=== PATIENT | female | born 1960 | race Caucasian/White ===

== ENCOUNTER → 2016-04-12 | Outpatient (CLI) | payer OTHER ==
--- NOTE | 2016-04-14 07:57 | MM ---
Reason for exam: screening (asymptomatic). Last mammogram was performed 7 months ago. History: Patient is postmenopausal and had first child after 30. Benign MG stereo VAD BX RT of the right breast, March 23, 2015. Benign right breast needle localzation of both breasts, March 06, 2012. Benign right mammotome panel of the right breast, February 27, 2012. Physical Findings: A clinical breast exam by your physician is recommended on an annual basis and results should be correlated with mammographic findings. MG Screening Mammo w CAD Bilateral CC and MLO view(s) were taken. Prior study comparison: September 21, 2015, right breast MG diagnostic mammo RT w CAD. March 15, 2015, right breast MG work up mamm w CAD RT. February 24, 2015, bilateral MG screening mammo w CAD. September 10, 2013, bilateral MG screening mammo w CAD. There are scattered fibroglandular densities. No significant changes when compared with prior studies. ASSESSMENT: Negative, BI-RAD 1 RECOMMENDATION: Routine screening mammogram of both breasts in 1 year.
== END | disposition home or self-care (01) ==
LOC: RADMAMWWP 06:55
PROVIDERS: ATTEND Family Medicine
DX: Z12.31 Encounter for screening mammogram for malignant neoplasm of breast (principal)

== ENCOUNTER → 2017-08-10 | Outpatient (CLI) | payer OTHER ==
--- NOTE | 2017-08-13 11:03 | MM ---
Reason for exam: screening (asymptomatic). Last mammogram was performed 1 year and 4 months ago. History: Patient is postmenopausal and had first child after 30. Benign MG stereo VAD BX RT of the right breast, March 23, 2015. Benign right breast needle localzation of both breasts, March 06, 2012. Benign right mammotome panel of the right breast, February 27, 2012. Physical Findings: A clinical breast exam by your physician is recommended on an annual basis and results should be correlated with mammographic findings. MG Screening Mammo w CAD Bilateral CC and MLO view(s) were taken. Prior study comparison: April 12, 2016, bilateral MG screening mammo w CAD. September 21, 2015, right breast MG diagnostic mammo RT w CAD. There are scattered fibroglandular densities. Finding: There are typically benign round calcifications in both breasts. Previous mammotome biopsy in the right breast. There is no discrete abnormality. ASSESSMENT: Benign, BI-RAD 2 RECOMMENDATION: Routine screening mammogram of both breasts in 1 year.
== END | disposition home or self-care (01) ==
LOC: RADMAMWWP 07:11
PROVIDERS: ATTEND Family Medicine
DX: Z12.31 Encounter for screening mammogram for malignant neoplasm of breast (principal)
CPT/HCPCS: 77067

== ENCOUNTER → 2018-09-17 | Outpatient (CLI) | payer OTHER ==
--- NOTE | 2018-09-17 11:01 | MM ---
Reason for exam: screening (asymptomatic). Last mammogram was performed 1 year and 1 month ago. History: Patient is postmenopausal and had first child after 30. Benign MG stereo VAD BX RT of the right breast, March 23, 2015. Benign right breast needle localzation of both breasts, March 06, 2012. Benign right mammotome panel of the right breast, February 27, 2012. Physical Findings: A clinical breast exam by your physician is recommended on an annual basis and results should be correlated with mammographic findings. MG Screening Mammo w CAD Bilateral CC and MLO view(s) were taken. Prior study comparison: August 10, 2017, bilateral MG screening mammo w CAD. April 12, 2016, bilateral MG screening mammo w CAD. The breast tissue is almost entirely fat. No significant changes when compared with prior studies. ASSESSMENT: Benign, BI-RAD 2 RECOMMENDATION: Routine screening mammogram of both breasts in 1 year.
== END | disposition home or self-care (01) ==
LOC: RADMAMWWP 07:14
PROVIDERS: ATTEND Family Medicine
DX: Z12.31 Encounter for screening mammogram for malignant neoplasm of breast (principal)
CPT/HCPCS: 77067

== ENCOUNTER 2019-10-12 15:25 | Emergency (ER) | payer OTHER ==
[2019-10-12 15:34] VITALS: TEMP 98.6
--- NOTE | 2019-10-12 15:53 | ED ---
Fall HPI - General Chief Complaint: Fall Stated Complaint: Fall, right arm pain Time Seen by Provider: 10/12/19 15:35 Source: patient, RN notes reviewed, old records reviewed Mode of arrival: ambulatory - History of Present Illness Initial Comments: Bianca is a 59-year-old female who presents emergency department today after a fall from a ladder. Patient reports that she was a few feet up a ladder painting and the ladder slid down the wall, causing the Patient to hit her right elbow and humerus on a board. Patient states that she has pain with range of motion at the elbow and upper arm. Patient denies any shoulder or clavicle pain. She reports normal sensation in the hand. She is right-handed. She denies any previous arm fractures. - Related Data Allergies Allergy/AdvReac Type Severity Reaction Status Date / Time No Known Allergies Allergy Verified 10/12/19 15:34 Review of Systems ROS Statement: Those systems with pertinent positive or pertinent negative responses have been documented in the HPI. ROS Other: All systems not noted in ROS Statement are negative. Past Medical History Past Medical History: Diabetes Mellitus, Hypertension History of Any Multi-Drug Resistant Organisms: None Reported Past Surgical History: Cholecystectomy, Tonsillectomy Past Psychological History: No Psychological Hx Reported Smoking Status: Never smoker Past Alcohol Use History: None Reported Past Drug Use History: None Reported General Exam - General Exam Comments Initial Comments: 59 -year-old female. No distress. Limitations: no limitations General appearance: alert, in no apparent distress Head exam: Present: atraumatic, normocephalic, normal inspection Eye exam: Present: normal appearance, PERRL, EOMI. Absent: scleral icterus, conjunctival injection, periorbital swelling ENT exam: Present: normal exam Neck exam: Present: normal inspection. Absent: tenderness, meningismus, lymphadenopathy Respiratory exam: Present: normal lung sounds bilaterally Cardiovascular Exam: Present: regular rate, normal rhythm, normal heart sounds. Absent: systolic murmur, diastolic murmur, rubs, gallop, clicks GI/Abdominal exam: Present: soft, normal bowel sounds. Absent: distended, tenderness, guarding, rebound, rigid Extremities exam: Present: normal inspection, full ROM, normal capillary refill. Absent: tenderness, pedal edema, joint swelling, calf tenderness Right Shoulder Exam: Present: normal inspection, full ROM Upper Arm exam: Present: normal inspection, full ROM, tenderness (over distal humerus) Elbow exam: Present: normal inspection, full ROM Forearm Wrist exam: Present: normal inspection, full ROM Hand Wrist exam: Present: normal inspection, full ROM Back exam: Present: normal inspection Neurological exam: Present: alert, oriented X3, CN II-XII intact Psychiatric exam: Present: normal affect, normal mood Skin exam: Present: warm, dry, intact, normal color. Absent: rash Course Vital Signs 10/12/19 15:32 Temperature 98.6 F Pulse Rate 63 Respiratory 20 Rate Blood Pressure 144/72 O2 Sat by Pulse 98 Oximetry Medical Decision Making - Medical Decision Making 59-year-old female presents emergency department today for evaluation for concern for right arm pain after falling off a ladder hitting the upper arm on a wooden board. At this time Patient elbow and humerus x-rays show no fractures. His evidence of olecranon spurring. Patient does have contusions warm to touch over the arm. Discussed Eusebio wrap and sling at this time but there is no evidence of fracture. Patient advised to have follow-up with her primary care doctor or orthopedic if symptoms continue persist or worsen. We'll discharge Patient had temperature medication. - Radiology Data Radiology results: report reviewed Elbow x-ray shows olecranon process peripheral mentation. No fracture. Negative right humerus exam. Disposition Clinical Impression: Arm contusion Disposition: HOME SELF-CARE Condition: Good Instructions (If sedation given, give patient instructions): Contusion in Adults (ED), Arm Pain (ED) Additional Instructions: Please use medication as discussed. Patient is to rest ice and elevate the arm. Please follow up with family doctor if symptoms have not improved over the next two days. Please return to the emergency room if your symptoms increase or worsen or for any other concerns. Is patient prescribed a controlled substance at d/c from ED?: No Referrals: Milad Montano DO [Primary Care Provider] - 1-2 days Time of Disposition: 16:35
--- NOTE | 2019-10-12 16:14 | XR ---
EXAMINATION TYPE: XR elbow complete RT DATE OF EXAM: 10/12/2019 COMPARISON: None HISTORY: Fell off a ladder. Elbow pain. TECHNIQUE: 3 views FINDINGS: I see no fracture nor dislocation. Joint spaces are normal. There is spurring on the olecra non process of the ulna. There is no sign of elbow joint effusion. IMPRESSION: Olecranon process spur formation. No fracture seen.
--- NOTE | 2019-10-12 16:15 | XR ---
EXAMINATION TYPE: XR humerus RT DATE OF EXAM: 10/12/2019 COMPARISON: NONE HISTORY: Pain. Fall off a ladder. TECHNIQUE: 3 views FINDINGS: The elbow joint and shoulder joint appear intact. I see no fracture nor dislocation. AC erickson nt appears intact. IMPRESSION: Negative right humerus exam.
[2019-10-12 17:28] VITALS: BP 123/95; PULSE 69; RESP 18
== END 2019-10-12 16:52 | disposition home or self-care (01) ==
LOC: EC 15:25
DX: S40.021A Contusion of right upper arm, initial encounter (principal); W11.XXXA Fall on and from ladder, initial encounter; Y93.89 Activity, other specified; Y92.89 Other specified places as the place of occurrence of the external cause
CPT/HCPCS: 99284

== ENCOUNTER → 2020-01-22 | Outpatient (CLI) | payer OTHER ==
--- NOTE | 2020-01-26 14:03 | MM ---
Reason for exam: screening (asymptomatic). Last mammogram was performed 1 year and 4 months ago. History: Patient is postmenopausal. Benign MG stereo VAD BX RT of the right breast, March 23, 2015. Benign right breast needle localzation of both breasts, March 06, 2012. Benign right mammotome panel of the right breast, February 27, 2012. Physical Findings: A clinical breast exam by your physician is recommended on an annual basis and results should be correlated with mammographic findings. MG Screening Mammo w CAD Bilateral CC and MLO view(s) were taken. Prior study comparison: September 17, 2018, bilateral MG screening mammo w CAD. August 10, 2017, bilateral MG screening mammo w CAD. The breast tissue is almost entirely fat. No significant changes when compared with prior studies. ASSESSMENT: Benign, BI-RAD 2 RECOMMENDATION: Routine screening mammogram of both breasts in 1 year.
== END | disposition home or self-care (01) ==
LOC: RADMAMWWP 11:40
PROVIDERS: ATTEND Family Medicine
DX: Z12.31 Encounter for screening mammogram for malignant neoplasm of breast (principal)
CPT/HCPCS: 77067

== ENCOUNTER → 2021-03-30 | Outpatient (CLI) | payer OTHER ==
--- NOTE | 2021-04-01 11:34 | MM ---
Reason for exam: screening (asymptomatic). Last mammogram was performed 1 year and 2 months ago. History: Patient is postmenopausal. Benign MG stereo VAD BX RT of the right breast, March 23, 2015. Benign right breast needle localzation of both breasts, March 06, 2012. Benign right mammotome panel of the right breast, February 27, 2012. Physical Findings: A clinical breast exam by your physician is recommended on an annual basis and results should be correlated with mammographic findings. MG 3D Screening Mammo W/Cad Bilateral CC and MLO view(s) were taken. XCCL view(s) were taken of the left breast. Prior study comparison: January 22, 2020, bilateral MG screening mammo w CAD. September 17, 2018, bilateral MG screening mammo w CAD. There are scattered fibroglandular densities. Previous mammotome biopsy in the right breast. There is chronic nodularity in the left breast with associated course calcifications. Benign oil cyst calcifications on the right. No significant changes when compared with prior studies. ASSESSMENT: Benign, BI-RAD 2 RECOMMENDATION: Routine screening mammogram of both breasts in 1 year.
== END | disposition home or self-care (01) ==
LOC: RADMAMWWP 15:18
PROVIDERS: ATTEND Family Medicine
DX: Z12.31 Encounter for screening mammogram for malignant neoplasm of breast (principal); Z78.0 Asymptomatic menopausal state
CPT/HCPCS: 77063; 77067

== ENCOUNTER → 2022-04-26 | Outpatient (CLI) | payer OTHER ==
--- NOTE | 2022-04-27 08:26 | MM ---
Reason for Exam: Screening (asymptomatic). Last mammogram was performed 1 year(s) and 1 month(s) ago. Patient History: Menarche at age 13. First Full-Term at age 23. Postmenopausal. 03/23/2015, Benign Core Biopsy on the right side. 03/06/2012, Bilateral Benign Excisional Biopsy. 02/27/2012, Benign Core Biopsy on the right side. Risk Values: Yris 5 year model risk: 2.1%. NCI Lifetime model risk: 9.2%. Prior Study Comparison: 09/17/2018 Bilateral Screening Mammogram, [facility]. 01/22/2020 Bilateral Screening Mammogram, [facility]. 03/30/2021 Bilateral Screening Mammogram, [facility]. Tissue Density: There are scattered fibroglandular densities. Findings: Analyzed By CAD. There is no suspicious group of microcalcifications or new suspicious mass in either breast. Overall Assessment: Negative, BI-RAD 1 Management: Screening Mammogram of both breasts in 1 year. A clinical breast exam by your physician is recommended on an annual basis and results should be correlated with mammographic findings. Electronically signed and approved by: Andriy Wilkins M.D. Radiologis
== END | disposition home or self-care (01) ==
LOC: RADMAMWWP 11:31
PROVIDERS: ATTEND Family Medicine
DX: Z12.31 Encounter for screening mammogram for malignant neoplasm of breast (principal); Z78.0 Asymptomatic menopausal state
CPT/HCPCS: 77067

== ENCOUNTER → 2023-04-27 | Outpatient (CLI) | payer OTHER ==
--- NOTE | 2023-04-27 16:25 | MM ---
Reason for Exam: Screening (asymptomatic). Last screening mammogram was performed 12 month(s) ago. Patient History: Menarche at age 13. First Full-Term at age 23. Postmenopausal. 03/23/2015, Benign Core Biopsy on the right side. 03/06/2012, Bilateral Benign Excisional Biopsy. 02/27/2012, Benign Core Biopsy on the right side. Risk Values: Yris 5 year model risk: 2.1%. NCI Lifetime model risk: 8.9%. Prior Study Comparison: 01/22/2020 Bilateral Screening Mammogram, [facility]. 03/30/2021 Bilateral Screening Mammogram, [facility]. 04/26/2022 Bilateral MG screening mammo w CAD, [facility]. Tissue Density: The breast tissue is almost entirely fat. Findings: Analyzed By CAD. There is no suspicious group of microcalcifications or new suspicious mass. Benign-appearing calcifications bilaterally. Overall Assessment: Benign, BI-RAD 2 Management: Screening Mammogram of both breasts in [address] [facility] will attempt to contact patient to return for supplemental views and ultrasound if indicated. Patient should continue monthly self-breast exams. A clinical breast exam by your physician is recommended on an annual basis. This exam should not preclude additional follow-up of suspicious palpable abnormalities. Note on Yris scores and lifetime risk: 1. A Yris score greater than 3% is considered moderate risk. If this is the case, consider specialist referral to assess eligibility for a risk reducing agent. 2. If overall lifetime risk for the development of breast cancer is 20% or higher, the patient may qualify for future screening with alternating mammogram and breast MRI. Electronically signed and approved by: Jesús Richard DO
== END | disposition home or self-care (01) ==
LOC: RADMAMWWP 14:27
PROVIDERS: ATTEND Family Medicine
DX: Z12.31 Encounter for screening mammogram for malignant neoplasm of breast (principal); Z78.0 Asymptomatic menopausal state
CPT/HCPCS: 77063; 77067